=== PATIENT | female | born 1995 | race Caucasian/White ===

== ENCOUNTER 2017-02-23 23:31 | Inpatient (IN) | payer OTHER ==
[~2017-02-23] VITALS: Ht 152.4 cm; Wt 51.0 kg
[2017-02-24 02:31] LABS: PLATELET COUNT 335 x10^3mcL (130-400)
[2017-02-24 02:33] LABS: BASOPHIL % 4.2 % (0-2); RED CELL DISTRIBUTION WIDTH 15.3 % (11.5-14.5)
[2017-02-24 02:43] LABS: CALCIUM 8.8 mg/dL (8.5-10.1); CARBON DIOXIDE 26.5 mmol/L (21-32); CHLORIDE SERUM 104 mmol/L (98-107); CREATININE SERUM 0.6 mg/dL (0.6-1.0); GFR1 > 60 mL/min; GLUCOSE SERUM 94 mg/dL (74-106); POTASSIUM SERUM 3.8 mmol/L (3.5-5.1); SODIUM SERUM 140 mmol/L (136-145)
[2017-02-24 02:46] LABS: ALBUMIN 3.4 g/dL (3.4-5.0); ALKALINE PHOSPHATASE 94 U/L (46-116); ALT/SGPT 30 U/L (14-59); AST/SGOT 22 U/L (15-37); BILIRUBIN TOTAL 0.16 mg/dL (0.20-1.00); LIPASE 199 IU/L (73-393); TOTAL PROTEIN, SERUM 7.5 g/dL (6.4-8.2)
[2017-02-24 06:11] VITALS: BP 101/65
[2017-02-24 06:26] LABS: MAGNESIUM 2.2 mg/dL (1.8-2.4); PHOSPHOROUS 4.3 mg/dL (2.5-4.9)
[2017-02-24 06:31] LABS: T3 TOTAL 1.09 ng/mL
[2017-02-24 06:38] LABS: CHOLESTEROL/HDL RATIO 2.8
[2017-02-24 07:33] LABS: FREE T4 1.08 ng/dL (0.76-1.46); FREE THYROXINE INDEX 3.1 ug/dL (1.4-4.5); T4(THYROXINE) 9.1 ug/dL (4.7-13.3)
[2017-02-24 09:41] VITALS: BP 89/56
[2017-02-24 12:00] VITALS: BP 103/60
[2017-02-24 13:06] VITALS: BP 93/62
[2017-02-24 17:55] VITALS: BP 98/58
[2017-02-24 18:13] LABS: UA SPECIFIC GRAVITY 1.025 (1.005-1.035); microscopic required? YES; urine erythrocyte 3+ (NEGATIVE)
[2017-02-24 18:30] LABS: AMPHETAMINE QUAL UR NONE DETECTED (NEG <=1000)
[2017-02-24 21:48] VITALS: BP 97/44
[2017-02-25 05:34] VITALS: BP 107/47
[2017-02-25 07:24] LABS: BASOPHIL % 0.7 % (0-2); PLATELET COUNT 249 x10^3mcL (130-400)
[2017-02-25 07:46] LABS: RED CELL DISTRIBUTION WIDTH 16.1 % (11.5-14.5)
[2017-02-25 09:43] VITALS: BP 90/58
[2017-02-25 13:51] VITALS: BP 101/53
[2017-02-25 18:00] VITALS: BP 96/54
[2017-02-25 21:50] VITALS: BP 106/54
[2017-02-26 05:12] VITALS: BP 99/53
[2017-02-26 08:40] VITALS: BP 92/48
[2017-02-26 15:05] VITALS: BP 103/64
[2017-02-26 17:33] VITALS: BP 91/54
[2017-02-26 20:59] VITALS: BP 93/50
[2017-02-27] VITALS (7 sets, daily range): BP systolic 93–103; BP diastolic 49–62
[2017-02-27 06:13] LABS: BASOPHIL % 0.3 % (0-2); PLATELET COUNT 287 x10^3mcL (130-400)
[2017-02-27 06:22] LABS: RED CELL DISTRIBUTION WIDTH 16.5 % (11.5-14.5)
[2017-02-27 06:35] LABS: CALCIUM 8.4 mg/dL (8.5-10.1); CARBON DIOXIDE 28.5 mmol/L (21-32); CHLORIDE SERUM 105 mmol/L (98-107); CREATININE SERUM 0.5 mg/dL (0.6-1.0); GFR1 > 60 mL/min; GLUCOSE SERUM 96 mg/dL (74-106); MAGNESIUM 1.8 mg/dL (1.8-2.4); PHOSPHOROUS 3.8 mg/dL (2.5-4.9); POTASSIUM SERUM 3.7 mmol/L (3.5-5.1); SODIUM SERUM 138 mmol/L (136-145)
[2017-02-28 05:25] VITALS: BP 105/52
[2017-02-28 06:33] LABS: CALCIUM 8.4 mg/dL (8.5-10.1); CARBON DIOXIDE 28.5 mmol/L (21-32); CHLORIDE SERUM 105 mmol/L (98-107); CREATININE SERUM 0.6 mg/dL (0.6-1.0); GFR1 > 60 mL/min; GLUCOSE SERUM 82 mg/dL (74-106); MAGNESIUM 1.8 mg/dL (1.8-2.4); PHOSPHOROUS 3.8 mg/dL (2.5-4.9); POTASSIUM SERUM 3.4 mmol/L (3.5-5.1); SODIUM SERUM 142 mmol/L (136-145)
[2017-02-28 06:37] LABS: BASOPHIL % 0.5 % (0-2); PLATELET COUNT 276 x10^3mcL (130-400)
[2017-02-28 06:50] LABS: RED CELL DISTRIBUTION WIDTH 16.6 % (11.5-14.5)
[2017-02-28 09:25] VITALS: BP 107/59
[2017-02-28] MEDS ORDERED: ACETAMINOPHEN-H1 TA1 PO (10:07)
[2017-02-28] MEDS ORDERED: MOT600 PO (10:11)
[2017-02-28] MEDS ORDERED: COL100 PO (10:11)
[2017-02-28] MEDS ORDERED: MAC100 PO (11:18)
[2017-02-28] MEDS ORDERED: LAC PO (11:18)
[2017-02-28 13:49] VITALS: BP 107/65
[2017-02-28 13:56] VITALS: BP 107/65
== END 2017-02-28 15:03 | disposition home or self-care (01) | DRG 263 ==
LOC: ED 23:31 → DU 02-24 04:51
PROVIDERS: Emergency Medicine; Surgery; ADMIT Family Medicine Sports Medicine
PROC: 0FT44ZZ Resection of Gallbladder, Percutaneous Endoscopic Approach (ICD-10-PCS; principal; 2017-02-26 09:00)
DX: K80.20 Calculus of gallbladder without cholecystitis without obstruction (principal); N17.0 Acute kidney failure with tubular necrosis; N39.0 Urinary tract infection, site not specified; E78.5 Hyperlipidemia, unspecified; Z68.22 Body mass index [BMI] 22.0-22.9, adult; Z90.49 Acquired absence of other specified parts of digestive tract; Z53.29 Procedure and treatment not carried out because of patient's decision for other reasons; D64.9 Anemia, unspecified; R31.9 Hematuria, unspecified
CPT/HCPCS: 83880; 84439; 94150; J0330; J0690; J0696; J1170; J1885; J2175; J2250; J2270; J2405; J2704; J3010; J3490; J7030; J7120; Q0092

== ENCOUNTER 2017-08-28 18:53 | Emergency (ER) | payer OTHER ==
[~2017-08-28] VITALS: Ht 152.4 cm; Wt 80.7 kg
[~2017-08-28 18:53] MED LIST: ACETAMINOPHEN-H1 TA1 PO; COL100 PO; LAC PO; MAC100 PO; MOT600 PO
[2017-08-28 19:10] VITALS: Ht 152.4 cm; Wt 80.7 kg
[2017-08-28 20:13] VITALS: BP 100/64
== END 2017-08-28 20:13 | disposition home or self-care (01) ==
LOC: ED 18:53
DX: R30.0 Dysuria (principal); Z90.49 Acquired absence of other specified parts of digestive tract

== ENCOUNTER 2018-04-25 13:34 | Emergency (ER) | payer OTHER ==
[~2018-04-25] VITALS: Ht 152.4 cm; Wt 49.9 kg
== END 2018-04-25 14:27 | disposition home or self-care (01) ==
LOC: ED 13:34
DX: A08.4 Viral intestinal infection, unspecified (principal); Z90.49 Acquired absence of other specified parts of digestive tract; Z90.89 Acquired absence of other organs; Z98.890 Other specified postprocedural states
CPT/HCPCS: Q0162

== ENCOUNTER 2020-04-04 13:55 | Emergency (ER) | payer OTHER ==
[~2020-04-04] VITALS: Ht 152.4 cm; Wt 52.2 kg
[2020-04-04 14:11] VITALS: Ht 152.4 cm; Wt 52.2 kg
[2020-04-04 14:36] LABS: BASOPHIL % 0.6 % (0-2); PLATELET COUNT 306 x10^3mcL (130-400); RED CELL DISTRIBUTION WIDTH 14.3 % (11.5-14.5)
[2020-04-04 15:09] VITALS: BP 108/52
== END 2020-04-04 15:09 | disposition home or self-care (01) ==
LOC: ED 13:55
PROVIDERS: Emergency Medicine
DX: N93.9 Abnormal uterine and vaginal bleeding, unspecified (principal); N39.0 Urinary tract infection, site not specified; Z90.49 Acquired absence of other specified parts of digestive tract; Z90.89 Acquired absence of other organs; Z98.890 Other specified postprocedural states